=== PATIENT | male | born 1980 | race American Indian/Alaskan Native ===

== ENCOUNTER 2018-12-11 04:03 | Emergency (ER) | payer SELFPAY ==
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
[2018-12-11] MEDS ORDERED: Morphine 4 MG/ML VIAL IV STA (06:54)
[2018-12-11 07:07] LABS: BASO % 0.3 % (0.0-2.0); EOS % 0.1 % (0.0-4.0); HEMOGLOBIN 15.9 g/dL (12.0-18.0); LYMPH # 0.9 K/uL (1.0-4.3); LYMPH % 6.5 % (20.0-40.0); MEAN CELL VOLUME 84.4 fL (80.0-94.0); MEAN CORPUSCULAR HEMOGLOBIN 27.8 pg (27.0-31.0); MEAN PLATELET VOLUME 7.8 fL (7.2-11.7); MONO % 7.3 % (0.0-10.0); NEUT # 11.8 K/uL (1.8-7.0); NEUT % 85.8 % (50.0-75.0); PLATELET COUNT 301 K/uL (130-400); RBC 5.71 Mil/uL (4.40-5.90); RED CELL DISTRIBUTION WIDTH 14.7 % (11.5-14.5); WHITE BLOOD COUNT 13.7 K/uL (4.8-10.8)
[2018-12-11] MEDS ORDERED: Morphine 4 MG/ML VIAL ONE (07:15)
[2018-12-11 07:17] LABS: PROTHROMBIN TIME 10.8 SECONDS (9.7-12.2)
[2018-12-11 08:11] LABS: ALB/GLOB RATIO 1.5 (1.0-2.1); ALBUMIN 4.9 g/dL (3.5-5.0); ALT/SGPT 15 U/L (21-72); AST/SGOT 29 U/L (17-59); BLOOD UREA NITROGEN 12 mg/dL (9-20); GFR NON-AFRICAN AMERICAN > 60
[2018-12-11] MEDS ORDERED: Sodium Chloride 0.9% 1,000 ML IV ONE (08:18)
[2018-12-11 08:30] LABS: BANDS 1 % (0-2); LYMPHOCYTE 5 % (20-40); MONOCYTE 7 % (0-10); NEUTROPHIL 87 % (50-75); TOTAL CELLS COUNTED 100
[2018-12-11 08:34] LABS: ANISOCYTOSIS SLIGHT; LARGE PLATELETS PRESENT; PLATELET ESTIMATE NORMAL (NORMAL)
[2018-12-11 09:29] VITALS: BP 148/88; PULSE 84; RESP 14; TEMP 97.8; O2SAT 97
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
--- NOTE | 2018-12-11 15:48 | CT ---
Date of service: 12/11/2018 PROCEDURE: CT MAXILLOFACIAL BONES WITHOUT CONTRAST HISTORY: fracture COMPARISON: None available. TECHNIQUE: Contiguous axial CT images of the maxillofacial bones were obtained. Coronal and sagittal reformats were generated. Radiation dose: Total exam DLP = 941.37 mGy-cm. This CT exam was performed using one or more of the following dose reduction techniques: Automated exposure control, adjustment of the mA and/or kV according to patient size, and/or use of iterative reconstruction technique. FINDINGS: NASAL BONES: Bilateral comminuted nasal fractures with mild depression. No significant displacement. ORBITS: Unremarkable. PARANASAL SINUSES/ MASTOIDS: Clear. MAXILLA: Unremarkable. MANDIBLE/ TEMPOROMANDIBULAR JOINTS: Fracture of the right mandibular body, mildly displaced, between 2 teeth, a premolar and a molar. It is possible that there is an absent tooth. There is no tooth fracture appreciated. Displaced fracture of the left mandibular ramus. Displaced fracture at the left angle of the mandible. SKULL BASE: Unremarkable. TEMPORAL BONES: Depressed fracture of the left zygomatic arch anteriorly. There is nondisplaced fracture at the junction of the posterior zygomatic arch with the mastoid air cells and posterior 0 lateral aspect of the left glenoid fossa. OTHER FINDINGS: Swelling of the left medial masseter likely due to muscular hemorrhage/edema. Extensive gas about the left medial masseter possibly from buccal mucosal disruption. IMPRESSION: Bilateral nasal fractures. Bilateral mandibular fractures. Multipart fracture left zygomatic arch. The preliminary findings for this examination were reported by [facility] at 6:39 a.m. on 12/11/2018.. There is concurrence of this report with the preliminary findings.
== END 2018-12-11 09:29 | disposition short-term general hospital (02) ==
LOC: C.ER 04:03
DX: S02.609A Fracture of mandible, unspecified, initial encounter for closed fracture (principal); Y04.0XXA Assault by unarmed brawl or fight, initial encounter
CPT/HCPCS: 70450; 70480; 80053; 85025; 85610; 85730; 86850; 86900; 96372; 96374; 96375; 99285; J2270; J2405; J7030